=== PATIENT | female | born 1980 | race Caucasian/White ===

== ENCOUNTER 2016-07-31 10:29 | Outpatient (CLI) | payer OTHER ==
--- NOTE | 2016-07-31 15:29 | Diagnostic Imaging Report ---
[facility] [id number] [facility].[address] [id number] Report Submission Date: July 31, 2016 2:35:37 PM CDT Patient Study Name: ASHLEY SEAMAN Date: July 31, 2016 10:43:36 AM CDT Modality Type: CR Gender: F Description: LOWER EXTREMITY : 82 Institution: [facility] Physician MENA ROSALES - OP Right foot -three views CLINICAL HISTORY: Fall 2 days ago. Lateral pain. FINDINGS: Examination of the right foot in plantar, lateral and oblique views demonstrates mild narrowing of the 1st metatarsophalangeal joint. There is no evident fracture or dislocation and no lytic or blastic lesion. 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 No fracture. Electronically signed on July 31, 2016 2:35:37 PM CDT by: Quincy DAILEY
--- NOTE | 2016-07-31 15:30 | Diagnostic Imaging Report ---
[facility] [id number] [facility].[address] [id number] Report Submission Date: July 31, 2016 2:36:21 PM CDT Patient Study Name: ASHLEY SEAMAN Date: July 31, 2016 10:45:59 AM CDT Modality Type: CR Gender: F Description: LOWER EXTREMITY : 82 Institution: [facility] Physician MENA ROSALES - OP Right ankle -three views CLINICAL HISTORY: Fall 2 days ago. Lateral side injury. Pain. FINDINGS: Examination of the right ankle in AP, lateral and oblique views fails to demonstrate evidence of fracture or dislocation. The ankle mortise is anatomic. There is no lytic or blastic lesion. IMPRESSION: Negative study. Electronically signed on July 31, 2016 2:36:21 PM CDT by: Quincy DAILEY
== END 2016-07-31 10:30 ==
LOC: RAD 10:29
PROVIDERS: ATTEND Family Medicine
DX: M79.671 Pain in right foot (principal); M25.571 Pain in right ankle and joints of right foot
CPT/HCPCS: 73610; 73630